=== PATIENT | female | born 1935 | race Caucasian/White ===

== ENCOUNTER 2018-01-09 00:08 | Observation (INO) | payer MEDICARE, OTHER ==
[~2018-01-09] VITALS: Ht 165.1 cm; Wt 87.9 kg
[2018-01-09] VITALS (13 sets, daily range): BP systolic 110–151; BP diastolic 53–92; PULSE 85–113; RESP 16–24; TEMP 95.4–97.6; O2SAT 93–100
[2018-01-09] MEDS ORDERED: ASPI-183 PO (00:27)
[2018-01-09] MEDS ORDERED: METO100T PO (00:27)
[2018-01-09 03:44] LABS: BLOOD, URINE LARGE (NEG); GLUCOSE,URINE 100 mg/dL (NEG); KETONE, URINE TRACE mg/dL (NEG); NITRITE,URINE POS (NEG); PH, URINE 5.5 (5.0-8.5); URINE LEUKOCYTE ESTERASE TRACE (NEG)
[2018-01-09 03:48] LABS: BILIRUBIN, URINE NEG (NEG); URINE COLOR BROWN (YELLW/STRAW)
[2018-01-09 03:54] LABS: BICARBONATE 27.4 MEQ/L (21.0-32.0); CALCIUM 8.5 MG/DL (8.5-10.1)
[2018-01-09 03:54] LABS: RBC, URINE 100-200 /hpf (0-3)
[2018-01-09 03:55] LABS: AMORPHOUS SEDIMENT, URINE MOD; BACTERIA, URINE FEW /hpf; CALCIUM OXALATE CRYSTALS,URINE FEW /hpf
[2018-01-09 03:58] LABS: CREATININE 0.78 MG/DL (0.50-1.00)
--- NOTE | 2018-01-09 04:01 | PD ---
HPI Chief Complaint: General Weakness Time Seen by Provider: 03:34 Travel History International Travel<30 days: No Contact w/Intl Traveler<30days: No Traveled to known affect area: No History of Present Illness HPI The patient is an 82-year-old female with a history of atrial fibrillation for about 13 years. She states in the last 3 months she has been progressively weak and tired and short of breath. He states she lives alone. She states she has never had congestive heart failure. She denies any chest discomfort. PFSH Past Medical History Atrial Fibrillation: Yes Cardiovascular Problems: Yes (4 CARDIAC ABLATIONS) Gastrointestinal Disorders: Yes (COLONOSCOPY: DIVERTICULOSIS) Pneumonia: Yes Tetanus Vaccination: Unknown Influenza Vaccination: Yes ?: Not Menopausal: Yes : 5 Para: 6 Tubal Ligation: Yes Past Surgical History Eye Surgery: Yes (BILATERAL CORNEA) Social History Alcohol Use: No Tobacco Use: No (QUIT AGE 48) Substance Use: No Allergies-Medications (Allergen,Severity, Reaction): Coded Allergies: No Known Drug Allergies (Verified Allergy, Unknown, 01/09/18) Reported Meds & Prescriptions Reported Meds & Active Scripts Active Reported Aspirin 325 Mg Tab 325 Mg PO DAILY Metoprolol Tartrate 100 Mg Tab 100 Mg PO Q8HR Review of Systems Except as stated in HPI: all other systems reviewed are Neg Physical Exam Narrative GENERAL: The patient is alert, oriented 3 in no respiratory distress. Her vital signs show heart rate slightly over 100 but otherwise are normal. SKIN: Focused skin assessment warm/dry. No skin rash is seen. HEAD: Atraumatic. Normocephalic. EYES: Pupils equal and round. No scleral icterus. No injection or drainage. ENT: No nasal bleeding or discharge. Mucous membranes pink and moist. NECK: Trachea midline. No JVD. CARDIOVASCULAR: Regular rate and rhythm. No murmur appreciated. RESPIRATORY: No accessory muscle use. Clear to auscultation. Breath sounds equal bilaterally. GASTROINTESTINAL: Abdomen soft, non-tender, nondistended. Hepatic and splenic margins not palpable. MUSCULOSKELETAL: No obvious deformities. No clubbing. No cyanosis. No edema. NEUROLOGICAL: Awake and alert. No obvious cranial nerve deficits. Motor grossly within normal limits. Normal speech. PSYCHIATRIC: Appropriate mood and affect; insight and judgment normal. Data Data Last Documented VS Vital Signs Date Time Temp Pulse Resp B/P (MAP) Pulse Ox O2 Delivery O2 Flow Rate FiO2 3/25/18 04:47 97.6 106 22 146/53 (84) 95 Room Air Orders Orders Complete Blood Count With Diff (01/09/18 02:34) Basic Metabolic Panel (Bmp) (01/09/18 02:34) Urinalysis - C+S If Indicated (01/09/18 02:34) B-Type Natriuretic Peptide (01/09/18 02:37) Urine Culture (01/09/18 02:30) Troponin I (01/09/18 04:12) Magnesium (Mg) (01/09/18 04:12) Chest, Pa & Lat (01/09/18 04:12) Furosemide Inj (Lasix Inj) (01/09/18 05:15) Ceftriaxone Inj (Rocephin Inj) (01/09/18 05:15) Labs Laboratory Tests Test 01/09/18 00:34 01/09/18 02:30 White Blood Count 8.3 TH/MM3 Red Blood Count 4.69 MIL/MM3 Hemoglobin 14.3 GM/DL Hematocrit 43.7 % Mean Corpuscular Volume 93.2 FL Mean Corpuscular Hemoglobin 30.4 PG Mean Corpuscular Hemoglobin Concent 32.6 % Red Cell Distribution Width 17.3 % Platelet Count 214 TH/MM3 Mean Platelet Volume 12.3 FL Neutrophils (%) (Auto) 66.6 % Lymphocytes (%) (Auto) 23.5 % Monocytes (%) (Auto) 6.5 % Eosinophils (%) (Auto) 1.9 % Basophils (%) (Auto) 1.5 % Neutrophils # (Auto) 5.6 TH/MM3 Lymphocytes # (Auto) 1.9 TH/MM3 Monocytes # (Auto) 0.5 TH/MM3 Eosinophils # (Auto) 0.2 TH/MM3 Basophils # (Auto) 0.1 TH/MM3 CBC Comment DIFF FINAL Differential Comment Blood Urea Nitrogen 24 MG/DL Creatinine 0.78 MG/DL Random Glucose 87 MG/DL Calcium Level 8.5 MG/DL Sodium Level 139 MEQ/L Potassium Level 5.2 MEQ/L Chloride Level 104 MEQ/L Carbon Dioxide Level 27.4 MEQ/L Anion Gap 8 MEQ/L Estimat Glomerular Filtration Rate 70 ML/MIN B-Type Natriuretic Peptide 1074 PG/ML Urine Color BROWN Urine Turbidity CLOUDY Urine pH 5.5 Urine Specific [place] GREATER/EQUAL 1.030 Urine Protein 100 mg/dL Urine Glucose (UA) 100 mg/dL Urine Ketones TRACE mg/dL Urine Occult Blood LARGE Urine Nitrite POS Urine Bilirubin NEG Urine Urobilinogen 0.2 MG/DL Urine Leukocyte Esterase TRACE Urine RBC 100-200 /hpf Urine WBC 9-14 /hpf Urine Squamous Epithelial Cells 6-8 /hpf Urine Calcium Oxalate Crystals FEW /hpf Urine Amorphous Sediment MOD Urine Bacteria FEW /hpf Microscopic Urinalysis Comment CULTURE INDICATED MDM Medical Decision Making Medical Screen Exam Complete: Yes Emergency Medical Condition: Yes Medical Record Reviewed: Yes Interpretation(s) The PA and lateral chest x-ray shows congestive heart failure. The CBC is normal. The BUN is 24 and GFR of 70 and potassium 5.2 but the rest of the recent metabolic profile is normal. The urine shows brown color, cloudy turbidity, trace ketones with large blood and positive nitrite and trace leukocyte esterase and 9-14 white cells with 100-200 red cells and culture is indicated. The BNP is 1074. Differential Diagnosis Congestive heart failure-new onset, urinary tract infection, electrolyte disorder, acute coronary syndrome, anemia Narrative Course The patient appears to have new onset congestive heart failure. This is likely the cause of her progressive weakness and decreasing ability to function at home. She probably also has a urinary tract infection. Diagnosis Primary Impression: Congestive heart failure Additional Impression: Urinary tract infection Admitting Information Admitting Physician Requests: Oh Cottrell MD Jan 09, 2018 04:01
[2018-01-09 04:05] LABS: AUTOMATED NEUTROPHIL # 5.6 TH/MM3 (1.8-7.7); BASOPHIL # 0.1 TH/MM3 (0-0.2); BASOPHIL % 1.5 % (0.0-2.0); EOSINOPHIL # 0.2 TH/MM3 (0-0.4); EOSINOPHIL % 1.9 % (0.0-4.0); HEMATOCRIT 43.7 % (35.0-46.0); HEMOGLOBIN 14.3 GM/DL (11.6-15.3); LYMPH % 23.5 % (9.0-44.0); LYMPHOCYTE # 1.9 TH/MM3 (1.0-4.8); MEAN CELL VOLUME 93.2 FL (80.0-100.0); MEAN CORPUSCULAR HEMOGLOBIN 30.4 PG (27.0-34.0); MEAN CORPUSCULAR HGB CONC 32.6 % (32.0-36.0); MEAN PLATELET VOLUME 12.3 FL (7.0-11.0); MONO % 6.5 % (0.0-8.0); MONOCYTE # 0.5 TH/MM3 (0-0.9); NEUT % 66.6 % (16.0-70.0); PLATELET COUNT 214 TH/MM3 (150-450); RED BLOOD COUNT 4.69 MIL/MM3 (4.00-5.30); RED CELL DISTRIBUTION WIDTH 17.3 % (11.6-17.2); WHITE BLOOD COUNT 8.3 TH/MM3 (4.0-11.0)
--- NOTE | 2018-01-09 05:01 | RADRPT ---
EXAM DATE/TIME: 01/09/2018 04:31 [facility] COMPARISON: No previous studies available for comparison. INDICATIONS : Shortness of breath. MEDICAL HISTORY : FIB SURGICAL HISTORY : None. ENCOUNTER: Initial ACUITY: 1 day PAIN SCORE: 0/10 LOCATION: Bilateral chest FINDINGS: AP and lateral erect views of the chest were obtained and demonstrate bibasal opacity right greater t dao left with blunting of both costophrenic angles. There is mild cardiomegaly. Atherosclerotic cowan es are present in the aorta. There is diffuse osteopenia. The bony structures are otherwise intact. CONCLUSION: Findings most characteristic of congestive heart failure. Angel Sandoval MD on January 09, 2018 at 4:58 Board Certified Radiologist. This report was verified electronically.
[2018-01-09] MEDS ORDERED: LACTULOSE SYRUP 20 GM/30 ML CUP PO PRN (05:15)
[2018-01-09] MEDS ORDERED: ONDANSETRON HCL 4 MG/2 ML VIAL IVP PRN (05:15)
[2018-01-09] MEDS ORDERED: MAGNESIUM HYDROXIDE SUSP 30 ML CUP PO PRN (05:15)
[2018-01-09] MEDS ORDERED: cefTRIAXone INJ 1,000 MG in SODIUM CHLORIDE 0.9% INJ 100 ML IV ONE (05:15)
[2018-01-09] MEDS ORDERED: FUROSEMIDE 40 MG/4 ML VIAL IV PUSH ONE (05:15)
[2018-01-09] MEDS ORDERED: SENNOSIDES 8.6 MG TAB PO PRN (05:15)
[2018-01-09] MEDS ORDERED: BISACODYL 10 MG SUPP RECTAL PRN (05:15)
[2018-01-09] MEDS ORDERED: ACETAMINOPHEN/HYDROcodone 325 MG/5 MG TAB PO PRN (05:15)
[2018-01-09] MEDS ORDERED: ACETAMINOPHEN 325 MG TAB PO PRN (05:15)
[2018-01-09] MEDS ORDERED: SODIUM CHLORIDE 0.9% FLUSH 10 ML FLUSH IV FLUSH PRN (05:15)
[2018-01-09] MEDS ORDERED: METOPROLOL TARTRATE 50 MG TAB PO ONE (06:00)
[2018-01-09] MEDS ORDERED: METOPROLOL TARTRATE 100 MG TAB PO SCH (06:00)
[2018-01-09 06:01] LABS: TROPONIN I LESS THAN 0.02 NG/ML (0.02-0.05)
[2018-01-09] MEDS: FUROSEMIDE 20 MG/2 ML VIAL IV PUSH SCH ×2 (09:00→18:00)
[2018-01-09] MEDS: SODIUM CHLORIDE 0.9% FLUSH 10 ML FLUSH IV FLUSH SCH ×2 (09:14→20:29)
[2018-01-09] MEDS: HEPARIN SODIUM - SQ 10,000 UNITS/ML VIAL SQ SCH ×2 (09:42→20:29)
[2018-01-09] MEDS: DOCUSATE SODIUM 50 MG/SENNA 8.6 MG TAB PO SCH ×2 (09:42→20:29)
[2018-01-09] MEDS: ASPIRIN 325 MG TAB PO SCH (09:42)
--- NOTE | 2018-01-09 11:31 | HHI.HP ---
HPI Service [facility] Primary Care Physician Chong Felix Admission Diagnosis New onset congestive heart failure, UTI Diagnoses: Chief Complaint: Shortness of breath Travel History International Travel<30 Days: No Contact w/Intl Traveler <30 Da: No Traveled to Known Affected Are: No History of Present Illness Patient is an 82-year-old female with a known history of atrial fibrillation. She denies any history of congestive heart failure but appears at this time with recent edema, dyspnea on exertion and weakness. She appears to have elevated BNP and x-ray which is consistent with her clinical symptoms of congestive heart failure. Patient recently saw her primary doctor and was given furosemide as well as increased her metoprolol. She also follows up with a slasher. Patient at this time feels better on oxygen by nasal cannula. Patient also has put out 2 L of urine with IV Lasix. She also has improvement of weakness but says she is not moving very much. Her significant other at the bedside says that she is unable to get moving at all. She also she was hyperkalemic with elements of urinary tract infection. Antibiotics have been given patient continues to require inpatient care Review of Systems Constitutional: DENIES: Diaphoretic episodes, Fatigue, Fever, Weight gain, Weight loss, Chills, Dizziness, Change in appetite, Night Sweats Endocrine: DENIES: Abnorml menstrual pattern, Heat/cold intolerance, Polydipsia , Polyuria, Polyphagia Eyes: DENIES: Blurred vision, Diplopia, Eye inflammation, Eye pain, Vision loss , Photosensitivity, Double Vision Ears, nose, mouth, throat: DENIES: Tinnitus, Hearing loss, Vertigo, Nasal discharge, Oral lesions, Throat pain, Hoarseness, Ear Pain, Running Nose, Epistaxis, Sinus Pain, Toothache, Odynophagia Respiratory: COMPLAINS OF: Shortness of breath, DENIES: Apneas, Cough, Snoring , Wheezing, Hemoptysis, Sputum production Cardiovascular: COMPLAINS OF: Palpitations, Dyspnea on Exertion, Lower Extremity Edema, DENIES: Chest pain, Syncope, PND, Orthopnea, Claudication Gastrointestinal: DENIES: Abdominal pain, Black stools, Bloody stools, Constipation, Diarrhea, Nausea, Vomiting, Difficulty Swallowing, Anorexia Genitourinary: DENIES: Abnormal vaginal bleeding, Dysmenorrhea, Dyspareunia, Sexual dysfunction, Urinary frequency, Urinary incontinence, Urgency, Hematuria , Dysuria, Nocturia, Vaginal discharge Musculoskeletal: DENIES: Joint pain, Muscle aches, Stiffness, Joint Swelling, Back pain, Neck pain Integumentary: DENIES: Abnormal pigmentation, Pruritus, Rash, Nail changes, Breast masses, Breast skin changes, Nipple discharge Hematologic/lymphatic: DENIES: Bruising, Lymphadenopathy Immunologic/allergic: DENIES: Eczema, Urticaria Neurologic: DENIES: Abnormal gait, Headache, Localized weakness, Paresthesias, Seizures, Speech Problems, Tremor, Poor Balance Psychiatric: DENIES: Anxiety, Confusion, Mood changes, Depression, Hallucinations, Agitation, Suicidal Ideation, Homicidal Ideation, Delusions Past Family Social History Past Medical History Congestive heart failure Atrial fibrillation Past Surgical History Eye surgery Reported Medications Reviewed in the EMR, recently increase her metoprolol to 3 times a day Allergies: Coded Allergies: No Known Drug Allergies (Verified Allergy, Unknown, 01/09/18) Active Ordered Medications Reviewed in the EMR Family History Unknown to patient Social History No tobacco or alcohol dependency, lives alone but has a significant other Physical Exam Vital Signs Vital Signs Date Time Temp Pulse Resp B/P (MAP) Pulse Ox O2 Delivery O2 Flow Rate FiO2 01/09/18 11:03 95 16 144/76 (98) 99 Nasal Cannula 2.00 01/09/18 09:20 Nasal Cannula 2.00 01/09/18 09:04 108 20 133/89 (104) 96 Room Air 01/09/18 07:08 108 20 113/56 (75) 93 Room Air 01/09/18 04:47 97.6 106 22 146/53 (84) 95 Room Air 01/09/18 01:43 111 18 110/84 (93) 100 Room Air 01/09/18 00:36 113 130/69 (89) 95 01/09/18 00:35 Room Air 01/09/18 00:35 101 130/69 (89) 97 Room Air 01/09/18 00:15 97.4 108 18 134/76 (95) 100 Physical Exam GENERAL: This is a well-nourished, well-developed patient, who is weak and complaining of shortness of breath SKIN: No rashes, ecchymoses or lesions. Cool and dry. HEAD: Atraumatic. Normocephalic. No temporal or scalp tenderness. EYES: Pupils equal round and reactive. Extraocular motions intact. No scleral icterus. No injection or drainage. ENT: Nose without bleeding, purulent drainage or septal hematoma. Throat without erythema, tonsillar hypertrophy or exudate. Uvula midline. Airway patent. NECK: Trachea midline. No JVD or lymphadenopathy. Supple, nontender, no meningeal signs. CARDIOVASCULAR: Tachycardia without murmurs, gallops, or rubs. RESPIRATORY: Clear to auscultation. Breath sounds equal bilaterally. No wheezes , rales, or rhonchi. GASTROINTESTINAL: Abdomen soft, non-tender, nondistended. No hepato-splenomegaly , or palpable masses. No guarding. MUSCULOSKELETAL: Extremities without clubbing, cyanosis, or edema. No joint tenderness, effusion, or edema noted. No calf tenderness. Negative Homans sign bilaterally. NEUROLOGICAL: Awake and alert. Cranial nerves II through XII intact. Motor and sensory grossly within normal limits. Five out of 5 muscle strength in all muscle groups. Normal speech. Laboratory Laboratory Tests Test 01/09/18 00:34 01/09/18 02:30 01/09/18 05:45 White Blood Count 8.3 Red Blood Count 4.69 Hemoglobin 14.3 Hematocrit 43.7 Mean Corpuscular Volume 93.2 Mean Corpuscular Hemoglobin 30.4 Mean Corpuscular Hemoglobin Concent 32.6 Red Cell Distribution Width 17.3 Platelet Count 214 Mean Platelet Volume 12.3 Neutrophils (%) (Auto) 66.6 Lymphocytes (%) (Auto) 23.5 Monocytes (%) (Auto) 6.5 Eosinophils (%) (Auto) 1.9 Basophils (%) (Auto) 1.5 Neutrophils # (Auto) 5.6 Lymphocytes # (Auto) 1.9 Monocytes # (Auto) 0.5 Eosinophils # (Auto) 0.2 Basophils # (Auto) 0.1 CBC Comment DIFF FINAL Differential Comment Blood Urea Nitrogen 24 Creatinine 0.78 Random Glucose 87 Calcium Level 8.5 Sodium Level 139 Potassium Level 5.2 Chloride Level 104 Carbon Dioxide Level 27.4 Anion Gap 8 Estimat Glomerular Filtration Rate 70 B-Type Natriuretic Peptide 1074 Urine Color BROWN Urine Turbidity CLOUDY Urine pH 5.5 Urine Specific [place] GREATER/EQUAL 1.030 Urine Protein 100 Urine Glucose (UA) 100 Urine Ketones TRACE Urine Occult Blood LARGE Urine Nitrite POS Urine Bilirubin NEG Urine Urobilinogen 0.2 Urine Leukocyte Esterase TRACE Urine RBC 100-200 Urine WBC 9-14 Urine Squamous Epithelial Cells 6-8 Urine Calcium Oxalate Crystals FEW Urine Amorphous Sediment MOD Urine Bacteria FEW Microscopic Urinalysis Comment CULTURE INDICATED Magnesium Level 2.0 Troponin I LESS THAN 0.02 Date/Time Source Procedure Growth Status 01/09/18 02:30 Urine Clean Catch Urine Culture Pending Received Result Diagram: 01/09/183301/09/1833 Imaging Chest x-ray shows vascular congestion on my review Caprini VTE Risk Assessment Caprini VTE Risk Assessment: Mod/High Risk (score >= 2) Caprini Risk Assessment Model Point Value = 1 Point Value = 2 Point Value = 3 Point Value = 5 Age 41-60 Minor surgery BMI > 25 kg/m2 Swollen legs Varicose veins or History of unexplained or recurrent spontaneous Oral contraceptives or hormone replacement Sepsis (< 1 month) Serious lung disease, including pneumonia (< 1 month) Abnormal pulmonary function Acute myocardial infarction Congestive heart failure (< 1 month) History of inflammatory bowel disease Medical patient at bed rest Age 61-74 Arthroscopic surgery Major open surgery (> 45 min) Laparoscopic surgery (> 45 min) Malignancy Confined to bed (> 72 hours) Immobilizing plaster cast Central venous access Age >= 75 History of VTE Family history of VTE Factor V Leiden Prothrombin [id number] Lupus anticoagulant Anticardiolipin antibodies Elevated serum homocysteine Heparin-induced thrombocytopenia Other congenital or acquired thrombophilia Stroke (< 1 month) Elective arthroplasty Hip, pelvis, or leg fracture Acute spinal cord injury (< 1 month) Prophylaxis Regimen Total Risk Factor Score Risk Level Prophylaxis Regimen 0-1 Low Early ambulation 2 Moderate Order ONE of the following: *Sequential Compression Device (SCD) *Heparin 5000 units SQ BID 3-4 Higher Order ONE of the following medications: *Heparin 5000 units SQ TID *Enoxaparin/Lovenox 40 mg SQ daily (WT < 150 kg, CrCl > 30 mL/min) *Enoxaparin/Lovenox 30 mg SQ daily (WT < 150 kg, CrCl > 10-29 mL/min) *Enoxaparin/Lovenox 30 mg SQ BID (WT < 150 kg, CrCl > 30 mL/min) AND/OR *Sequential Compression Device (SCD) 5 or more Highest Order ONE of the following medications: *Heparin 5000 units SQ TID (Preferred with Epidurals) *Enoxaparin/Lovenox 40 mg SQ daily (WT < 150 kg, CrCl > 30 mL/min) *Enoxaparin/Lovenox 30 mg SQ daily (WT < 150 kg, CrCl > 10-29 mL/min) *Enoxaparin/Lovenox 30 mg SQ BID (WT < 150 kg, CrCl > 30 mL/min) AND *Sequential Compression Device (SCD) Assessment and Plan Problem List: (1) Hyperkalemia ICD Code: E87.5 - Hyperkalemia Plan: Repeat and follow trend (2) Congestive heart failure ICD Code: I50.9 - Heart failure, unspecified Status: Acute Plan: May be new onset Follow-up echocardiogram as there is none on record Cardiology consult pending Continue with beta kip, and ARB (if potassium improves) with Lasix (3) Urinary tract infection ICD Code: N39.0 - Urinary tract infection, site not specified Status: Acute Plan: Continue IV Rocephin and follow-up cultures (4) Atrial fibrillation ICD Code: I48.91 - Unspecified atrial fibrillation Plan: Continue with metoprolol 3 times daily Follow-up on telemetry Correct electrolytes Assessment and Plan Plan of care to be determined hospital course Lovenox PT eval, likely will need home health Discussed Condition With Patient, significant other Physician Certification 2 Midnight Certification Type: Admission for Inpatient Services Order for Inpatient Services The services are ordered in accordance with Medicare regulations or non- Medicare payer requirements, as applicable. In the case of services not specified as inpatient-only, they are appropriately provided as inpatient services in accordance with the 2-midnight benchmark. Estimated LOS (days): 3 3 days is the estimated time the patient will need to remain in the hospital, assuming treatment plan goals are met and no additional complications. Post-Hospital Plan: Home Health Francie Pollard MD Jan 09, 2018 11:31
--- NOTE | 2018-01-09 11:37 | ECHRPT ---
Indication: HEART FAILURE CONCLUSIONS Normal left ventricular size. Wall thickness is normal. The left ventricular systolic function is severely reduced with an estimated ejection fraction in th e range of 20%. Severe global hypokinesis Mitral annular calcification is present. Moderate mitral valve regurgitation. There is mild tricuspid valve regurgitation. The estimated pulmonary arterial pressure is 38 mmHg. There is a trivial pericardial effusion present. BP: / HR: Rhythm: Atrial fibrillation MEASUREMENTS (Male / Female) Normal Values Technical Quality: 2D ECHO LV Diastolic Diameter PLAX 4.0 cm 4.2 - 5.9 / 3.9 - 5.3 cm LV Systolic Diameter PLAX 3.6 cm IVS Diastolic Thickness 1.0 cm 0.6 - 1.0 / 0.6 - 0.9 cm LVPW Diastolic Thickness 0.7 cm 0.6 - 1.0 / 0.6 - 0.9 cm LV Relative Wall Thickness 0.4 RV Internal Dim ED PLAX 1.9 cm LA Systolic Diameter LX 4.0 cm 3.0 - 4.0 / 2.7 - 3.8 cm M-MODE Aortic Root Diameter MM 3.0 cm AV Cusp Separation MM 1.7 cm DOPPLER MR Peak Velocity 532.0 cm/s MR Peak Gradient 113.2 mmHg TR Peak Velocity 289.0 cm/s TR Peak Gradient 33.4 mmHg FINDINGS LEFT VENTRICLE Normal left ventricular size. Wall thickness is normal. The left ventricular systolic function is severely reduced with an estimated ejection fraction in th e range of 20%. RIGHT VENTRICLE Normal right ventricular size and systolic function. LEFT ATRIUM The left atrial size is normal. RIGHT ATRIUM The right atrial size is normal. ATRIAL SEPTUM Normal atrial septal thickness without atrial level shunting by limited color doppler interrogation. AORTA The aortic root and proximal ascending aorta are normal in size on limited imaging. MITRAL VALVE Mitral annular calcification is present. Moderate mitral valve regurgitation. AORTIC VALVE Trileaflet aortic valve. Trace aortic valve regurgitation. TRICUSPID VALVE There is mild tricuspid valve regurgitation. The estimated pulmonary arterial pressure is 38 mmHg. PULMONARY VALVE The pulmonary valve is not well visualized. VESSELS The inferior vena cava is normal in size. PERICARDIUM There is a trivial pericardial effusion present. Eddie Bautista MD (Electronically Signed) Final Date:09 January 2018 11:36
[2018-01-09] MEDS ORDERED: ENOXAPARIN SODIUM 40 MG/0.4 ML SYRINGE SQ SCH (12:00)
[2018-01-09 12:29] LABS: TROPONIN I LESS THAN 0.02 NG/ML (0.02-0.05)
[2018-01-09 12:37] LABS: BICARBONATE 30.9 MEQ/L (21.0-32.0); CALCIUM 8.6 MG/DL (8.5-10.1); CREATININE 0.77 MG/DL (0.50-1.00)
[2018-01-09] MEDS: METOPROLOL TARTRATE 100 MG TAB PO SCH ×2 (14:00→21:52)
[2018-01-09] MEDS: ACETAMINOPHEN/HYDROcodone 325 MG/10 MG TAB PO PRN ×2 (15:00→20:29)
--- NOTE | 2018-01-09 16:19 | MB ---
cc: Vasile Herrera MD, James DATE: 12/16/2017 HISTORY OF PRESENT ILLNESS: Lesvia is a very pleasant 82-year-old lady with history of atrial fibrillation. Her missile tracking technician is Dr. Choi. She had been on Eliquis in the past year, but was taken off Eliquis due to severe gastrointestinal bleeding requiring transfusion. She is now on aspirin daily. She presents to the ER with chief complaint of weakness and shortness of breath. The patient tells me specifically her chief complaint is "difficulty moving". She admits to shortness of breath, but this does not appear to be her primary complaint, at least what she tells me. She otherwise denies any chest pain, fever, chills, cough, GI, bleeding, PND, orthopnea, syncope or dizziness. PAST MEDICAL HISTORY: Includes AFib ablation x 4, colonoscopy, diverticulosis, pneumonia, bilateral cornea surgery. SOCIAL HISTORY: Former smoker. Denies alcohol use. Currently denies tobacco use. ALLERGIES: NONE. MEDICATIONS PRIOR TO ADMISSION: Aspirin 325 daily, metoprolol 100 mg q. 8 hours. MEDICATIONS IN THE HOSPITAL: Ceftriaxone, Toprol 100 mg q. 8 hours, Lasix 20 IV b.i.d., heparin 5000 subcutaneous q. 12 hours, aspirin 325 daily. PHYSICAL EXAMINATION: VITAL SIGNS: On admission, heart rate ranging between 108 and 111. Currently, heart rate is 92, blood pressure 151/72, sat is 100 percent on 2 liters nasal cannula, respiratory rate 20 and temperature is 97.4. GENERAL: She is alert and oriented x 3 in no acute distress. NECK: Supple. No JVD. No bruit. CARDIOVASCULAR: S1, S2. No murmurs, rubs or gallops. LUNGS: Clear to auscultation bilaterally. ABDOMEN: Soft, nontender, nondistended with positive bowel sounds. EXTREMITIES: No lower extremity edema. LABORATORY DATA: White count 8.3, hemoglobin 14.3, hematocrit 43.7, platelet count 214, troponins less than 0.02 x 2. BNP is 1074. TSH is 1.080. Sodium 141, initial potassium is 5.2, chloride 102, bicarbonate 30.9. Repeat potassium 3.9, BUN 21, creatinine 0.77. Chest x-ray findings most characteristic of "congestive heart failure". Her labs show a few bacteria, 9-14 white cells, large occult blood. She had an echocardiogram done today which shows EF of 20%, moderate MR, PA pressure 38 mmHg. Normal left ventricular size. There is no EKG available in the computer. DIAGNOSES: She has the following diagnoses: 1. Cardiomyopathy. 2. Decompensated congestive heart failure. 3. Atrial fibrillation. 4. History of gastrointestinal bleeding. 5. Hyperkalemia. 6. Possible urinary tract infection. 7. Dyspnea. 8. Congestive heart failure. 9. MR. DISCUSSION: At this point in time, the patient is being appropriately diuresed. She is on a beta kip. At this point in time, we will hold her DANG inhibitor due to hyperkalemia. I am not sure if this was due to a traumatic stick or it was significantly elevated. We will certainly need to see the trend on her potassium levels. She has a CHADS-VASc score of at least 3 and therefore she should be on novel oral anticoagulant agent or Coumadin to reduce her risk of stroke; however, she had what sounds like a life threatening bleed within the last year requiring transfusion and a history of diverticulosis. Therefore, I do think aspirin 325 mg is reasonable in this context. Dr. Choi will follow her up tomorrow on 01/10/2018. Recommend continued telemetry monitoring. Vasile Herrera MD AWC/TL , 03:46 PM , 04:18 PM
[2018-01-10] VITALS: BP 136/75; PULSE 89; RESP 17; TEMP 97.6; O2SAT 95
[2018-01-10 04:00] VITALS: BP 131/83; PULSE 91; RESP 18; TEMP 97.3; O2SAT 96
[2018-01-10] MEDS: METOPROLOL TARTRATE 100 MG TAB PO SCH ×3 (06:48→21:55)
[2018-01-10] MEDS: cefTRIAXone INJ 1,000 MG in SODIUM CHLORIDE 0.9% INJ 100 ML IV SCH (06:48)
[2018-01-10 06:54] LABS: AUTOMATED NEUTROPHIL # 4.4 TH/MM3 (1.8-7.7); BASOPHIL # 0.1 TH/MM3 (0-0.2); EOSINOPHIL # 0.2 TH/MM3 (0-0.4); EOSINOPHIL % 2.3 % (0.0-4.0); HEMATOCRIT 40.8 % (35.0-46.0); HEMOGLOBIN 13.2 GM/DL (11.6-15.3); LYMPH % 25.3 % (9.0-44.0); LYMPHOCYTE # 1.7 TH/MM3 (1.0-4.8); MEAN CELL VOLUME 93.6 FL (80.0-100.0); MEAN CORPUSCULAR HEMOGLOBIN 30.4 PG (27.0-34.0); MEAN CORPUSCULAR HGB CONC 32.5 % (32.0-36.0); MEAN PLATELET VOLUME 11.2 FL (7.0-11.0); MONO % 6.9 % (0.0-8.0); MONOCYTE # 0.5 TH/MM3 (0-0.9); NEUT % 64.5 % (16.0-70.0); PLATELET COUNT 190 TH/MM3 (150-450); RED BLOOD COUNT 4.36 MIL/MM3 (4.00-5.30); RED CELL DISTRIBUTION WIDTH 16.3 % (11.6-17.2); WHITE BLOOD COUNT 6.9 TH/MM3 (4.0-11.0)
[2018-01-10 06:55] LABS: CHLORIDE 103 MEQ/L (98-107); SODIUM (NA) 142 MEQ/L (136-145)
[2018-01-10 07:03] LABS: ALBUMIN 2.9 GM/DL (3.4-5.0); BICARBONATE 33.4 MEQ/L (21.0-32.0); CALCIUM 8.5 MG/DL (8.5-10.1); GLUCOSE,RANDOM 83 MG/DL (74-106)
[2018-01-10 07:04] LABS: BLOOD UREA NITROGEN 21 MG/DL (7-18)
[2018-01-10 07:07] LABS: ALT (GPT) 19 U/L (10-53); AST (GOT) 24 U/L (15-37); CREATININE 0.87 MG/DL (0.50-1.00); GLOMERULAR FILTRATION RATE 62 ML/MIN (>89)
[2018-01-10 07:08] LABS: TOTAL BILIRUBIN ADULT 0.9 MG/DL (0.2-1.0); TOTAL PROTEIN 6.5 GM/DL (6.4-8.2)
[2018-01-10 07:09] LABS: ALKALINE PHOSPHATASE 135 U/L (45-117)
[2018-01-10 08:00] VITALS: BP 128/76; PULSE 117; PULSE 119; RESP 19; TEMP 96.5; O2SAT 92
[2018-01-10] MEDS: ASPIRIN 325 MG TAB PO SCH (09:50)
[2018-01-10] MEDS: SODIUM CHLORIDE 0.9% FLUSH 10 ML FLUSH IV FLUSH SCH ×2 (09:50→21:55)
[2018-01-10] MEDS: HEPARIN SODIUM - SQ 10,000 UNITS/ML VIAL SQ SCH ×2 (09:51→21:55)
[2018-01-10] MEDS: DOCUSATE SODIUM 50 MG/SENNA 8.6 MG TAB PO SCH ×2 (09:51→21:55)
[2018-01-10] MEDS: FUROSEMIDE 20 MG/2 ML VIAL IV PUSH SCH ×2 (09:51→17:55)
[2018-01-10 12:00] VITALS: BP 105/100; PULSE 101; RESP 19; TEMP 96.6; O2SAT 92
[2018-01-10 16:00] VITALS: BP 131/73; PULSE 99; RESP 20; TEMP 96.4; O2SAT 93
--- NOTE | 2018-01-10 16:02 | HHI.PR ---
Subjective Remarks Patient seen and examined today for follow-up on congestive heart failure exacerbation. Patient is doing better today. Her breathing is improved. She states that she urinated quite a bit last night. Patient is reluctant to go home because she states that she is had multiple hospitalizations the last year and she appears to be getting weaker and weaker every time she goes home. She states that presently she feels too weak to go home. I discussed with her that she may need to go to a rehabilitation facility, patient states "absolutely not ". I discussed with her that all the recent hospitalizations could've caused some significant physical deconditioning and she does understand. Objective Vitals Vital Signs Date Time Temp Pulse Resp B/P (MAP) Pulse Ox O2 Delivery O2 Flow Rate FiO2 01/10/18 12:00 96.6 101 19 105/100 (102) 92 01/10/18 08:00 96.5 117 19 128/76 (93) 92 01/10/18 04:00 97.3 91 18 131/83 (99) 96 01/10/18 00:00 97.6 89 17 136/75 (95) 95 01/09/18 21:29 18 01/09/18 20:00 97.1 90 18 130/72 (91) 95 01/09/18 19:58 85 01/09/18 16:00 95.4 98 24 136/76 (96) 100 I/O 01/09/18 01/09/18 01/09/18 01/10/18 01/10/18 01/10/18 07:00 15:00 23:00 07:00 15:00 23:00 Intake Total 100 ml Output Total 800 ml 1200 ml Balance -700 ml -1200 ml Intake IV Total 100 ml Output Urine Total 800 ml 1200 ml # Voids 3 3 2 2 Result Diagram: 01/10/18 0630 01/10/18 0630 Objective Remarks GENERAL: Well-developed, well-nourished, in no acute distress. alert and orientated HEENT: Head is normocephalic without any lesions or masses noted. Facial features are symmetric. Eyes: Extraocular muscles are intact. Conjunctivae were clear. NECK: Supple without any masses. Trachea midline no deviation. No JVD, CARDIAC: Regular rhythm, regular rate. S1/S2 are heard. No murmurs gallops or rubs. LUNGS: Clear to auscultation bilaterally. No wheeze, rhonchi or rales. No use of accessory muscles on inspiration or expiration. ABDOMEN: Soft, nontender. Nondistended. Bowel sounds heard in all 4 quadrants. No organomegaly or masses. Negative rebound, negative guarding EXTREMITIES: No edema, pulses are equal bilaterally. No cyanosis or clubbing NEUROLOGY: Mood and affect appear appropriate. Cranial nerves II through XII grossly intact. 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 Hyperkalemia, resolved Unknown etiology could be secondary to laboratory error Patient not requiring any medication treatment for improvement DVT prevention DVT prevention next line subcutaneous heparin Discharge Planning Hopefully discharge tomorrow home with home health care Carlin Rivera Jan 10, 2018 16:02
--- NOTE | 2018-01-10 16:03 | HHI.DCPOC ---
Discharge Care Plan Diagnosis: (1) Congestive heart failure (2) Urinary tract infection (3) Atrial fibrillation (4) Hyperkalemia Goals to Promote Your Health * To prevent worsening of your condition and complications * To maintain your health at the optimal level Directions to Meet Your Goals Take your medications as prescribed Follow your dietary instruction Follow activity as directed Keep your appointments as scheduled Take your immunizations and boosters as scheduled If your symptoms worsen call your PCP, if no PCP go to Urgent Care Center or Emergency Room Smoking is Dangerous to Your Health. Avoid second hand smoke Call the 24-hour hour crisis hotline for domestic abuse at Carlin Rivera Jan 10, 2018 16:03
--- NOTE | 2018-01-10 16:05 | HHI.FF ---
Face to Face Verification Diagnosis: (1) Congestive heart failure (2) Atrial fibrillation Physical Therapy Order: Evaluate and Treat, Improve ambulation, Strength and gait training Home Health Nursing Order: Medical education Signs/symptoms of disease process CHF education Nursing assessment with vital signs I have seen patient Lesvia Montoya on 01/10/18. My clinical findings support the need for the requested home health care services because: Deconditioned w/ increased weakness Limited ability to care for self I certify that my clinical findings support that this patient is homebound because: Unsteady gait/balance Unsafe to leave home unassisted Poor cardiac reserve Carlin Rivera Jan 10, 2018 16:05
[2018-01-10 20:00] VITALS: BP 141/86; PULSE 100; RESP 20; TEMP 96.1; O2SAT 96
[2018-01-11] VITALS: BP 143/60; PULSE 116; RESP 20; TEMP 96.5; O2SAT 95
[2018-01-11 04:00] VITALS: BP 102/55; PULSE 93; RESP 20; TEMP 96.2; O2SAT 92
[2018-01-11] MEDS: METOPROLOL TARTRATE 100 MG TAB PO SCH (05:27)
[2018-01-11] MEDS: cefTRIAXone INJ 1,000 MG in SODIUM CHLORIDE 0.9% INJ 100 ML IV SCH (05:28)
[2018-01-11 06:47] LABS: CHLORIDE 102 MEQ/L (98-107); SODIUM (NA) 141 MEQ/L (136-145)
[2018-01-11 06:51] LABS: AUTOMATED NEUTROPHIL # 4.2 TH/MM3 (1.8-7.7); BASOPHIL # 0.2 TH/MM3 (0-0.2); BASOPHIL % 2.2 % (0.0-2.0); EOSINOPHIL # 0.2 TH/MM3 (0-0.4); EOSINOPHIL % 2.7 % (0.0-4.0); HEMATOCRIT 39.7 % (35.0-46.0); HEMOGLOBIN 12.9 GM/DL (11.6-15.3); LYMPH % 27.2 % (9.0-44.0); MEAN CELL VOLUME 93.6 FL (80.0-100.0); MEAN CORPUSCULAR HEMOGLOBIN 30.4 PG (27.0-34.0); MEAN CORPUSCULAR HGB CONC 32.4 % (32.0-36.0); MEAN PLATELET VOLUME 11.9 FL (7.0-11.0); MONO % 8.2 % (0.0-8.0); MONOCYTE # 0.6 TH/MM3 (0-0.9); NEUT % 59.7 % (16.0-70.0); PLATELET COUNT 202 TH/MM3 (150-450); RED BLOOD COUNT 4.24 MIL/MM3 (4.00-5.30); RED CELL DISTRIBUTION WIDTH 16.7 % (11.6-17.2); WHITE BLOOD COUNT 7.2 TH/MM3 (4.0-11.0)
[2018-01-11 06:58] LABS: CALCIUM 8.2 MG/DL (8.5-10.1)
[2018-01-11 06:59] LABS: ALBUMIN 2.9 GM/DL (3.4-5.0); BICARBONATE 34.2 MEQ/L (21.0-32.0); BLOOD UREA NITROGEN 20 MG/DL (7-18); GLUCOSE,RANDOM 74 MG/DL (74-106)
[2018-01-11 07:01] LABS: ALT (GPT) 21 U/L (10-53); AST (GOT) 24 U/L (15-37)
[2018-01-11 07:02] LABS: CREATININE 0.76 MG/DL (0.50-1.00); GLOMERULAR FILTRATION RATE 73 ML/MIN (>89)
[2018-01-11 07:03] LABS: TOTAL BILIRUBIN ADULT 0.6 MG/DL (0.2-1.0); TOTAL PROTEIN 6.5 GM/DL (6.4-8.2)
[2018-01-11 07:04] LABS: ALKALINE PHOSPHATASE 141 U/L (45-117)
[2018-01-11 07:50] VITALS: PULSE 100
[2018-01-11 08:00] VITALS: BP 114/52; PULSE 101; RESP 18; TEMP 97.1; O2SAT 94
[2018-01-11] MEDS ORDERED: FUROSEMIDE 20 MG TAB PO SCH (09:00)
[2018-01-11] MEDS ORDERED: LOSARTAN 25 MG TAB PO SCH (09:00)
[2018-01-11] MEDS: SODIUM CHLORIDE 0.9% FLUSH 10 ML FLUSH IV FLUSH SCH (09:04)
[2018-01-11] MEDS: DOCUSATE SODIUM 50 MG/SENNA 8.6 MG TAB PO SCH (09:05)
[2018-01-11] MEDS: ASPIRIN 325 MG TAB PO SCH (09:05)
[2018-01-11] MEDS: HEPARIN SODIUM - SQ 10,000 UNITS/ML VIAL SQ SCH (09:06)
[2018-01-11] MEDS ORDERED: FURO1TAB62 PO (11:31)
[2018-01-11] MEDS ORDERED: COZA25TA PO (11:31)
--- NOTE | 2018-01-11 13:15 | HHI.DS ---
Discharge Summary Admission Date Jan 09, 2018 at 05:19 Discharge Date: Jan 11, 2018 Admitting Diagnosis New onset congestive heart failure, UTI (1) Hyperkalemia ICD Code: E87.5 - Hyperkalemia (2) Congestive heart failure ICD Code: I50.9 - Heart failure, unspecified Status: Acute (3) Urinary tract infection ICD Code: N39.0 - Urinary tract infection, site not specified Status: Acute (4) Atrial fibrillation ICD Code: I48.91 - Unspecified atrial fibrillation Procedures ECHOCARDIOGRAM CONCLUSIONS Normal left ventricular size. Wall thickness is normal. The left ventricular systolic function is severely reduced with an estimated ejection fraction in the range of 20%. Severe global hypokinesis Mitral annular calcification is present. Moderate mitral valve regurgitation. There is mild tricuspid valve regurgitation. The estimated pulmonary arterial pressure is 38 mmHg. There is a trivial pericardial effusion present. Brief History - From Admission Patient is an 82-year-old female with a known history of atrial fibrillation. She denies any history of congestive heart failure but appears at this time with recent edema, dyspnea on exertion and weakness. She appears to have elevated BNP and x-ray which is consistent with her clinical symptoms of congestive heart failure. Patient recently saw her primary doctor and was given furosemide as well as increased her metoprolol. She also follows up with a radiographer cardiac catheterization. Patient at this time feels better on oxygen by nasal cannula. Patient also has put out 2 L of urine with IV Lasix. She also has improvement of weakness but says she is not moving very much. Her significant other at the bedside says that she is unable to get moving at all. She also she was hyperkalemic with elements of urinary tract infection. Antibiotics have been given patient continues to require inpatient care CBC/BMP: 01/11/18 0505 01/11/18 0505 Significant Findings Laboratory Tests Test 01/09/18 00:34 01/09/18 02:30 01/09/18 05:45 01/09/18 12:00 Red Cell Distribution Width 17.3 % (11.6-17.2) Mean Platelet Volume 12.3 FL (7.0-11.0) Blood Urea Nitrogen 24 MG/DL (7-18) 21 MG/DL (7-18) Potassium Level 5.2 MEQ/L (3.5-5.1) Estimat Glomerular Filtration Rate 70 ML/MIN (>89) 71 ML/MIN (>89) B-Type Natriuretic Peptide 1074 PG/ML (0-100) Urine Color BROWN (YELLW/STRAW) Urine Turbidity CLOUDY (CLEAR) Urine Protein 100 mg/dL (NEG-TRACE) Urine Glucose (UA) 100 mg/dL (NEG) Urine Ketones TRACE mg/dL (NEG) Urine Occult Blood LARGE (NEG) Urine Nitrite POS (NEG) Urine Leukocyte Esterase TRACE (NEG) Urine RBC 100-200 /hpf (0-3) Urine WBC 9-14 /hpf (0-5) Urine Squamous Epithelial Cells 6-8 /hpf (0-5) Urine Calcium Oxalate Crystals FEW /hpf (NONE) Urine Bacteria FEW /hpf (NONE) Troponin I LESS THAN 0.02 NG/ML LESS THAN 0.02 NG/ML Test 01/10/18 06:30 01/11/18 05:05 Mean Platelet Volume 11.2 FL (7.0-11.0) 11.9 FL (7.0-11.0) Blood Urea Nitrogen 21 MG/DL (7-18) 20 MG/DL (7-18) Albumin 2.9 GM/DL (3.4-5.0) 2.9 GM/DL (3.4-5.0) Alkaline Phosphatase 135 U/L (45-117) 141 U/L (45-117) Carbon Dioxide Level 33.4 MEQ/L (21.0-32.0) 34.2 MEQ/L (21.0-32.0) Monocytes (%) (Auto) 8.2 % (0.0-8.0) Basophils (%) (Auto) 2.2 % (0.0-2.0) Calcium Level 8.2 MG/DL (8.5-10.1) Estimat Glomerular Filtration Rate 73 ML/MIN (>89) Imaging Last Impressions Chest X-Ray 01/09/18 2980 Signed Impressions: Service Date/Time: Tuesday, January 09, 2018 04:31 - CONCLUSION: Findings most characteristic of congestive heart failure. Angel Sandoval MD PE at Discharge GENERAL: Well-developed, well-nourished, in no acute distress. alert and orientated HEENT: Head is normocephalic without any lesions or masses noted. Facial features are symmetric. Eyes: Extraocular muscles are intact. Conjunctivae were clear. NECK: Supple without any masses. Trachea midline no deviation. No JVD, CARDIAC: Regular rhythm, regular rate. S1/S2 are heard. No murmurs gallops or rubs. LUNGS: Clear to auscultation bilaterally. No wheeze, rhonchi or rales. No use of accessory muscles on inspiration or expiration. ABDOMEN: Soft, nontender. Nondistended. Bowel sounds heard in all 4 quadrants. No organomegaly or masses. Negative rebound, negative guarding EXTREMITIES: No edema, pulses are equal bilaterally. No cyanosis or clubbing NEUROLOGY: Mood and affect appear appropriate. Cranial nerves II through XII grossly intact. Moving all extremities, speech is clear Hospital Course This is an 82-year-old female with known history of atrial fibrillation, who presented to the emergency department because of lower extremity edema, dyspnea, weakness. Patient had workup done in found to have elevated BNP with x-ray consistent with congestive heart failure. Patient recently was evaluated by her primary medical doctor and was started on Lasix and increase of her metoprolol. She is followed by radiographer cardiac catheterization Dr. Choi. Patient was given Lasix in emergency department with 2 L of urinary output. Other workup did indicate patient had urinary tract infection, culture does indicate strep viridans patient has received 3 doses of IV Rocephin. Patient was admitted the hospital with diuresis. Strict input and output, patient continued on beta kip and started on Cozaar. Patient did undergo echocardiogram which did indicate cardiomyopathy with ejection fraction in the range of 20% with global hypokinesis. Patient tolerated treatment well. Diuresis nicely. No arthritic change short of breath, dyspnea not requiring any oxygen for supplementation. Patient states that she still is weak, however physical therapy was performed and she walked 60 feet with a walker without any assistance. Physical therapy recommended home health PT with daughters assistance for short term rehabilitation. Patient states that she will not go to rehabilitation facility. Cardiology did evaluate the patient and increased her metoprolol for rate control. Did recommend chads score 3, however because she has had a recent life threatening bleed within the last year he is recommending aspirin 325 mg daily. [employer]ment [employer] recommending follow-up with her primary radiographer cardiac catheterization Dr. Choi. Patient is clinically stable this time. Plan discharge home with home health care once arrangements made by case management. Pt Condition on Discharge: Stable Discharge Disposition: Disch w/ Home Health Serv Discharge Time: > 30 minutes Discharge Instructions DIET: Follow Instructions for: Heart Healthy Diet Activities you can perform: Regular-No Restrictions Follow up Referrals: Cardiology - 2 Weeks with Ruel Krishnamurthy MD PCP Follow-up - 1 Week New Medications: Furosemide (Lasix) 20 Mg Tab 20 MG PO DAILY for CHF, #30 TAB 0 Refills Losartan (Cozaar) 25 Mg Tab 25 MG PO DAILY for CHF, BP management for 30 Days, #30 TAB Continued Medications: Aspirin (Aspirin) 325 Mg Tab 325 MG PO DAILY, #30 TAB 0 Refills Metoprolol Tartrate (Metoprolol Tartrate) 100 Mg Tab 100 MG PO Q8HR, #60 TAB 0 Refills Carlin Rivera Jan 11, 2018 13:15
== END 2018-01-11 14:11 | disposition home health service (06) ==
LOC: PHED 00:08 → PHEDA 05:19 → PHEDH 09:52 → PH3A 14:36
PROVIDERS: ADMIT Hospitalist; ATTEND Hospitalist
DX: E87.5 Hyperkalemia (principal); I50.23 Acute on chronic systolic (congestive) heart failure; N39.0 Urinary tract infection, site not specified; I48.91 Unspecified atrial fibrillation; I42.9 Cardiomyopathy, unspecified; I08.1 Rheumatic disorders of both mitral and tricuspid valves; Z79.82 Long term (current) use of aspirin; Z79.899 Other long term (current) drug therapy; Z87.891 Personal history of nicotine dependence
CPT/HCPCS: 71046; 80048; 80053; 81001; 83735; 83880; 84443; 84484; 85025; 87086; 93306; 96365; 96366; 96372; 96375; 96376; 97110; 97116; 97162; 99285; G0378; G8987; G8988; J0696; J1644; J1940; J2405